=== PATIENT | male | born 1940 | race African-American/Black ===

== ENCOUNTER 2018-04-18 11:30 | Emergency (ER) | payer OTHER ==
[~2018-04-18] VITALS: Ht 172.7 cm; Wt 76.2 kg
[2018-04-18] MEDS ORDERED: LOSARTAN-HCTZ1 EAC2 PO (12:19)
== END 2018-04-18 14:48 | disposition home or self-care (01) ==
LOC: ER 11:30
DX: S91.332A Puncture wound without foreign body, left foot, initial encounter (principal); W26.0XXA Contact with knife, initial encounter; Y93.89 Activity, other specified; Y92.018 Other place in single-family (private) house as the place of occurrence of the external cause; Y99.8 Other external cause status

== ENCOUNTER 2021-10-16 19:43 | Emergency (ER) | payer OTHER ==
[~2021-10-16] VITALS: Ht 170.2 cm; Wt 80.7 kg
[~2021-10-16 19:43] MED LIST: LOSARTAN-HCTZ1 EAC2 PO
[2021-10-16] MEDS ORDERED: METOPROLOL SUCC25 MG PO (19:55)
[2021-10-16] MEDS ORDERED: ROSUVASTATIN CA10 MG PO (19:55)
[2021-10-16] MEDS ORDERED: JARDIANCE10 MG PO (19:55)
[2021-10-16] MEDS ORDERED: VALSARTAN160 MG PO (19:55)
== END 2021-10-17 00:33 | disposition home or self-care (01) ==
LOC: ER 19:43
DX: T86.898 Other complications of other transplanted tissue (principal); R31.9 Hematuria, unspecified; I10 Essential (primary) hypertension; Z85.9 Personal history of malignant neoplasm, unspecified; E11.9 Type 2 diabetes mellitus without complications